=== PATIENT | female | born 1945 | race Caucasian/White ===

== ENCOUNTER 2017-01-06 11:31 | Emergency (ER) | payer MEDICARE | END 2017-01-06 12:14 | disposition home or self-care (01) | LOC: FER 11:31 | DX: T21.21XA Burn of second degree of chest wall, initial encounter (principal); Z85.3 Personal history of malignant neoplasm of breast; Z88.0 Allergy status to penicillin; Z88.5 Allergy status to narcotic agent; Z88.6 Allergy status to analgesic agent; Z98.890 Other specified postprocedural states; X12.XXXA Contact with other hot fluids, initial encounter; Y92.009 Unspecified place in unspecified non-institutional (private) residence as the place of occurrence of the external cause | CPT/HCPCS: 99283 ==

== ENCOUNTER 2021-11-22 12:06 | Emergency (ER) | payer MEDICARE ==
[~2021-11-22 12:06] MED LIST: AMLODIPINE BESYL5 MG PO; BENAZEPRIL HCL10 MG PO; GLIMEPIRIDE4 MG PO; LASIX40 MG PO; METOPROLOL TAR100 MG PO; NITROSTAT0.4 MG SL; NORCO 5-325 TA1 EACH PO; NORCO 5/3251 EACH PO; SPIRONOLACTONE25 MG PO; VIT D PO; VIT E PO; ZOFRAN8 MG PO
[2021-11-22 13:25] LABS: BASOPHIL 0.5 % (0-2); EOSINOPHIL 0.9 % (0-7); HCT 44.4 % (37.0-47.0); HGB 14.1 g/dl (12.5-16.0); LYMPHOCYTE 12.3 % (15-48); MCH 25.4 pg (25.0-31.0); MCHC 31.8 g/dL (32.0-36.0); MCV 79.9 fL (78.0-100.0); MONOCYTE 8.4 % (0-12); MPV 10.2 fL (6.0-9.5); NEUTROPHIL 77.3 % (41-80); NRBC 0; PLT 337 K/uL (150-400); RBC 5.56 M/uL (4.20-5.40); RDW 13.9 % (11.5-14.0); WBC 12.7 K/uL (4.0-10.5)
[2021-11-22 13:56] LABS: ALBUMIN 3.4 g/dL (3.4-5.0); BILIRUBIN - TOTAL 0.5 mg/dL (0.2-1.0); BUN/CREAT RATIO (CALC) 22.3 RATIO; CREATININE 0.94 mg/dL (0.51-0.95); GLOBULIN (CALCULATION) 4.4 g/dL; POTASSIUM 4.4 mmol/L (3.5-5.1); TOTAL PROTEIN 7.8 g/dL (6.4-8.2)
[2021-11-22 14:02] LABS: CORONAVIRUS 2019 SARS-COV-2 NEGATIVE (NEGATIVE); INFLUENZA A NAA NEGATIVE (NEGATIVE)
[2021-11-22 14:08] LABS: BILIRUBIN NEGATIVE (NEGATIVE); BLOOD 1+ Ery/uL (NEGATIVE); CLARITY CLOUDY (CLEAR); COLOR YELLOW (YELLOW); GLUCOSE (U) 2+ mg/dL (NORMAL); LEUKOCYTES 3+ Leu/uL (NEGATIVE); NITRITE NEGATIVE (NEGATIVE); PROTEIN 1+ mg/dL (NEGATIVE); SPECIFIC GRAVITY 1.015 (1.001-1.030); UROBILINOGEN 0.2 mg/dL (0.2-1.0)
[2021-11-22 14:21] LABS: BACTERIA 2+; URINARY WBC TNTC
[2021-11-22] MEDS ORDERED: CIPRO500 MG PO (15:08)
== END 2021-11-22 19:38 | disposition home or self-care (01) ==
LOC: FER 12:06
PROVIDERS: Internal Medicine
DX: E11.65 Type 2 diabetes mellitus with hyperglycemia (principal); N30.90 Cystitis, unspecified without hematuria; R91.8 Other nonspecific abnormal finding of lung field; E04.1 Nontoxic single thyroid nodule; M25.561 Pain in right knee; M17.12 Unilateral primary osteoarthritis, left knee; R03.0 Elevated blood-pressure reading, without diagnosis of hypertension; H61.23 Impacted cerumen, bilateral; I25.10 Atherosclerotic heart disease of native coronary artery without angina pectoris; Z20.822 Contact with and (suspected) exposure to COVID-19; Z88.0 Allergy status to penicillin; Z91.013 Allergy to seafood; Z79.84 Long term (current) use of oral hypoglycemic drugs
CPT/HCPCS: 36415; 70450; 71250; 73560; 80053; 81001; 83605; 83690; 83880; 84145; 84484; 85025; 87088; 93005; J0360; J3490; J7030; U0002

== ENCOUNTER 2021-12-26 23:22 | Emergency (ER) | payer MEDICARE ==
[~2021-12-26 23:22] MED LIST changes: +CIPRO500 MG PO
[2021-12-27 00:24] LABS: BASOPHIL 0.6 % (0-2); EOSINOPHIL 1.9 % (0-7); HCT 40.2 % (37.0-47.0); HGB 12.9 g/dl (12.5-16.0); LYMPHOCYTE 24.6 % (15-48); MCH 25.7 pg (25.0-31.0); MCHC 32.1 g/dL (32.0-36.0); MCV 80.1 fL (78.0-100.0); MONOCYTE 9.7 % (0-12); MPV 10.2 fL (6.0-9.5); NEUTROPHIL 62.9 % (41-80); NRBC 0; PLT 312 K/uL (150-400); RBC 5.02 M/uL (4.20-5.40); RDW 14.7 % (11.5-14.0); WBC 10.7 K/uL (4.0-10.5)
[2021-12-27 00:49] LABS: ALBUMIN 3.2 g/dL (3.4-5.0); BILIRUBIN - TOTAL 0.2 mg/dL (0.2-1.0); BUN/CREAT RATIO (CALC) 23.4 RATIO; CREATININE 0.94 mg/dL (0.51-0.95); GLOBULIN (CALCULATION) 4.3 g/dL; MAGNESIUM 1.9 mg/dL (1.8-2.4); POTASSIUM 3.3 mmol/L (3.5-5.1); TOTAL PROTEIN 7.5 g/dL (6.4-8.2)
[2021-12-27] MEDS ORDERED: PRINIVIL10 MG PO (02:01)
[2021-12-27 03:07] LABS: CORONAVIRUS 2019 SARS-COV-2 NEGATIVE (NEGATIVE); INFLUENZA A NAA NEGATIVE (NEGATIVE)
== END 2021-12-27 03:23 | disposition home or self-care (01) ==
LOC: FER 23:22
PROVIDERS: Internal Medicine
DX: I16.0 Hypertensive urgency (principal); E11.65 Type 2 diabetes mellitus with hyperglycemia; I10 Essential (primary) hypertension; Z88.0 Allergy status to penicillin; Z20.822 Contact with and (suspected) exposure to COVID-19; Z88.1 Allergy status to other antibiotic agents; Z88.5 Allergy status to narcotic agent; Z79.899 Other long term (current) drug therapy
CPT/HCPCS: 36415; 70450; 71045; 80053; 83735; 84145; 84484; 85025; 93005; U0002

== ENCOUNTER → 2022-06-21 | Day surgery (SDC) | payer MEDICARE ==
[~2022-06-21] VITALS: Ht 162.6 cm; Wt 77.1 kg
[~2022-06-21] MED LIST changes: +ADVIL200 M1 PO; +ASCORBIC ACID500 MG PO; +COZAAR100 MG PO; +JARDIANCE25 MG PO; +PRINIVIL10 MG PO; +VITAMIN D325 MC2 PO
== END | disposition home or self-care (01) ==
LOC: FAS 10:36
DX: R19.5 Other fecal abnormalities (principal); D12.2 Benign neoplasm of ascending colon; D12.0 Benign neoplasm of cecum; D12.4 Benign neoplasm of descending colon; D12.5 Benign neoplasm of sigmoid colon; D12.3 Benign neoplasm of transverse colon; K63.89 Other specified diseases of intestine; K57.30 Diverticulosis of large intestine without perforation or abscess without bleeding; K64.4 Residual hemorrhoidal skin tags; I25.10 Atherosclerotic heart disease of native coronary artery without angina pectoris; J45.909 Unspecified asthma, uncomplicated; E11.40 Type 2 diabetes mellitus with diabetic neuropathy, unspecified; I10 Essential (primary) hypertension; M19.90 Unspecified osteoarthritis, unspecified site; Z86.010 Personal history of colon polyps; Z88.8 Allergy status to other drugs, medicaments and biological substances; Z88.0 Allergy status to penicillin; Z91.013 Allergy to seafood
CPT/HCPCS: J2405; J2704; J7120

== ENCOUNTER 2022-07-02 10:28 | Inpatient (IN) | payer MEDICARE ==
[~2022-07-02] VITALS: Ht 162.6 cm; Wt 75.4 kg
[2022-07-02 11:33] LABS: BASOPHIL 0.5 % (0-2); EOSINOPHIL 1.1 % (0-7); HCT 40.4 % (37.0-47.0); HGB 12.4 g/dl (12.5-16.0); LYMPHOCYTE 16.4 % (15-48); MCH 23.4 pg (25.0-31.0); MCHC 30.7 g/dL (32.0-36.0); MCV 76.2 fL (78.0-100.0); MONOCYTE 9.3 % (0-12); MPV 9.8 fL (6.0-9.5); NEUTROPHIL 72.4 % (41-80); NRBC 0; PLT 290 K/uL (150-400); RDW 15.6 % (11.5-14.0); WBC 9.5 K/uL (4.0-10.5)
[2022-07-02 11:45] LABS: INR 1.07 (0.9-1.2); PROTHROMBIN TIME 13.6 SECONDS (11.9-13.9)
[2022-07-02 11:46] LABS: PTT 31.9 SECONDS (24.9-34.6)
[2022-07-02 11:47] LABS: D-DIMER 0.59 ug/mLFEU (0.00-0.41)
[2022-07-02 13:15] LABS: ALBUMIN 3.1 g/dL (3.4-5.0); BILIRUBIN - TOTAL 0.6 mg/dL (0.2-1.0); BUN/CREAT RATIO (CALC) 21.9 RATIO; CREATININE 0.64 mg/dL (0.51-0.95); GLOBULIN (CALCULATION) 4.5 g/dL; TOTAL PROTEIN 7.6 g/dL (6.4-8.2)
[2022-07-02 13:18] LABS: POTASSIUM 2.3 mmol/L (3.5-5.1)
[2022-07-02] MEDS ORDERED: AMARYL2 MG PO (16:15)
[2022-07-02] MEDS ORDERED: JARDIANCE25 MG PO (16:16)
[2022-07-02] MEDS ORDERED: LOPRESSOR50 MG PO (16:16)
[2022-07-02] MEDS ORDERED: NORVASC5 MG PO (16:17)
[2022-07-02] MEDS ORDERED: LASIX40 MG PO (16:18)
[2022-07-02] MEDS ORDERED: COZAAR 100MG T100 MG PO (16:18)
[2022-07-02 17:46] LABS: CHOLESTEROL 184 mg/dL (<200); HDL 40 mg/dL (40-60); LDL - DIRECT 131 mg/dL (<100); TRIGLYCERIDES 101 mg/dL (<150)
[2022-07-02 19:37] LABS: BUN/CREAT RATIO (CALC) 20.6 RATIO; CREATININE 0.68 mg/dL (0.51-0.95); POTASSIUM 2.5 mmol/L (3.5-5.1)
--- NOTE | 2022-07-03 01:53 | NUR ---
PT TRANSFERRED TO ICU BED 2 AT 0030 TO BE PLACED ON NITRO GTT. TROPONINS KEPT ELEVATING AND BP WAS HYPERTENSIVE AT 171/69. NITRO PASTE WAS REMOVED, NITRO GTT STARTED AT 5MCG/HR. TRANSFER INITIATED TO [facility] FOR HIGHER LEVEL OF CARE. ER,RN
--- NOTE | 2022-07-03 04:16 | NUR ---
PT. STARTED ON NITRO GTT AT 0030, AT 5MCG/1.5ML. BLOOD PRESSURE CONTINUED TO RISE. TITRATED PER PROTOCOL UP TO 70MCG/21ML AT 0400 WHEN EMS PICKED UP PT. TO TRANSFER TO [facility]. BLOOD PRESSURE AT 0400 WAS 172/65 HR 65. ER,RN
== END 2022-07-03 04:00 | disposition other institution (70) | DRG 282 ==
LOC: FER 10:28 → FTCU 12:25 → FICU 07-03 00:15
PROVIDERS: Emergency Medicine; ADMIT Internal Medicine
DX: I21.4 Non-ST elevation (NSTEMI) myocardial infarction (principal); E11.9 Type 2 diabetes mellitus without complications; E87.6 Hypokalemia; I11.9 Hypertensive heart disease without heart failure; H81.09 Meniere's disease, unspecified ear; R91.1 Solitary pulmonary nodule; R63.4 Abnormal weight loss; Z90.710 Acquired absence of both cervix and uterus; Z82.49 Family history of ischemic heart disease and other diseases of the circulatory system; Z83.3 Family history of diabetes mellitus; Z80.9 Family history of malignant neoplasm, unspecified; Z85.79 Personal history of other malignant neoplasms of lymphoid, hematopoietic and related tissues; Z88.0 Allergy status to penicillin; Z88.1 Allergy status to other antibiotic agents; Z91.013 Allergy to seafood; Z79.899 Other long term (current) drug therapy; Z28.311 Partially vaccinated for COVID-19; Z85.3 Personal history of malignant neoplasm of breast; Z79.84 Long term (current) use of oral hypoglycemic drugs; Z68.28 Body mass index [BMI] 28.0-28.9, adult
CPT/HCPCS: 36415; 71045; 71275; 80048; 80053; 80061; 82962; 83735; 84484; 85025; 85379; 85610; 85730; 93005; 94010; 94760; G0378; J1644; J2405; Q9967

== ENCOUNTER 2022-07-07 11:27 | Emergency (ER) | payer MEDICARE ==
[~2022-07-07 11:27] MED LIST changes: +AMARYL2 MG PO; +COZAAR 100MG T100 MG PO; +LOPRESSOR50 MG PO; +NORVASC5 MG PO
[2022-07-07 12:47] LABS: BASOPHIL 0.5 % (0-2); EOSINOPHIL 1.4 % (0-7); HCT 33.2 % (37.0-47.0); HGB 10.1 g/dl (12.5-16.0); LYMPHOCYTE 13.8 % (15-48); MCH 23.7 pg (25.0-31.0); MCHC 30.4 g/dL (32.0-36.0); MCV 77.8 fL (78.0-100.0); MONOCYTE 9.6 % (0-12); MPV 10.5 fL (6.0-9.5); NEUTROPHIL 74.3 % (41-80); NRBC 0; PLT 307 K/uL (150-400); RBC 4.27 M/uL (4.20-5.40); RDW 16.1 % (11.5-14.0); WBC 11.5 K/uL (4.0-10.5)
[2022-07-07 12:52] LABS: INR 1.11 (0.9-1.2)
[2022-07-07 13:02] LABS: ALBUMIN 2.4 g/dL (3.4-5.0); BILIRUBIN - TOTAL 0.6 mg/dL (0.2-1.0); BUN/CREAT RATIO (CALC) 16.5 RATIO; CREATININE 0.79 mg/dL (0.51-0.95); GLOBULIN (CALCULATION) 4.4 g/dL; POTASSIUM 3.2 mmol/L (3.5-5.1); TOTAL PROTEIN 6.8 g/dL (6.4-8.2)
[2022-07-07 13:07] LABS: CORONAVIRUS 2019 SARS-COV-2 NEGATIVE (NEGATIVE); INFLUENZA A NAA NEGATIVE (NEGATIVE)
== END 2022-07-07 18:45 | disposition home or self-care (01) ==
LOC: FER 11:27
PROVIDERS: Emergency Medicine
DX: R42 Dizziness and giddiness (principal); I50.9 Heart failure, unspecified; E11.9 Type 2 diabetes mellitus without complications; Z88.0 Allergy status to penicillin; Z20.822 Contact with and (suspected) exposure to COVID-19
CPT/HCPCS: 36415; 71045; 80053; 83605; 83880; 84484; 85025; 85610; 93005; J2405; J3480; J7040; U0002